=== PATIENT | female | born 2000 | race Caucasian/White ===

== ENCOUNTER 2024-02-17 20:32 | Emergency (ER) | payer SELFPAY ==
[2024-02-17 23:14] LABS: Specific Gravity 1.019 (1.005-1.030)
[2024-02-17] MEDS ORDERED: LIDOCAINE 1% MPF 5 ML VIAL ONE (23:23)
[2024-02-17] MEDS ORDERED: CEFTRIAXONE 1000 MG/VIAL ONE (23:23)
[2024-02-17] MEDS ORDERED: CODEINE 30MG/APAP 300MG TAB ONE (23:24)
[2024-02-17] MEDS ORDERED: DIAZEPAM 5 MG TABLET ONE (23:24)
[2024-02-17] MEDS ORDERED: KETOROLAC 30 MG/ML INJ ONE (23:24)
[2024-02-17] MEDS ORDERED: ONDANSETRON 4 MG (ODT) TAB ONE (23:24)
--- NOTE | 2024-02-18 00:09 | ER ---
Nurse's Notes [facility] Name: Radha Callaway Age: 24 yrs Sex: Female : 2000 Arrival Date: 02/17/2024 Time: 20:32 Bed 14 Private MD: Diagnosis: Dental caries, unspecified;Gingival abscess, acute dental abscess, dental cavity, acute pulpitis Presentation: 02/16 21:12 Chief complaint: Patient states: BROKEN RIGHT LOWER TOOTH. HAVING A TOOTHACHE THAT IS jj7 RADIATING TO THE RIGHT SIDE OF HER FACE. Coronavirus screen: At this time, the client does not indicate any symptoms associated with coronavirus-19. Ebola Screen: No symptoms or risks identified at this time. Initial Sepsis Screen: Does the patient meet any 2 criteria? No. Patient's initial sepsis screen is negative. Does the patient have a suspected source of infection? No. Patient's initial sepsis screen is negative. Risk Assessment: Do you want to hurt yourself or someone else? Patient reports no desire to harm self or others. Note TYLENOL. 21:12 Method Of Arrival: Ambulatory j7 21:12 Acuity: AUSTEN 5 jj7 Triage Assessment: 21:15 General: Appears in no apparent distress. uncomfortable, Behavior is calm, cooperative, jj7 appropriate for age. Pain: Complains of pain in lower right second molar and lower right third molar Pain radiates to right cheek, right ear and right jaw. EENT: Reports pain in mouth. 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 Flu vaccine is not up to date. - Social history:: Smoking status: Reported history of juuling and/or vaping. Patient/guardian denies using alcohol, street drugs, IV drugs. - Family history:: not pertinent. Screenin:17 [facility] ED Fall Risk Assessment (Adult) History of falling in the last 3 months, jj7 including since admission No falls in past 3 months (0 pts) Confusion or Disorientation No (0 pts) Intoxicated or Sedated No (0 pts) Impaired Gait No (0 pts) Mobility Assist Device Used No (0 pt) Altered Elimination Score/Fall Risk Level 0 - 2 = Low Risk Oriented to surroundings, Maintained a safe environment, Educated pt \T\ family on fall prevention, incl call for assistance when getting out of bed. Abuse screen: Denies threats or abuse. Nutritional screening: No deficits noted. Tuberculosis screening: No symptoms or risk factors identified. Assessment: 22:17 General: Appears in no apparent distress. comfortable, well groomed, well developed, pf1 Behavior is calm, cooperative, appropriate for age, quiet. 22:17 Pain: Complains of pain in face and right jaw and right ear and right cheek and mouth pf1 and lower right third molar and lower right second molar Pain currently is 7 out of 10 on a pain scale. Neuro: No deficits noted. Level of Consciousness is awake, alert, obeys commands, Oriented to person, place, time, situation. Cardiovascular: No deficits noted. Capillary refill < 3 seconds Patient's skin is warm and dry. Respiratory: No deficits noted. Airway is patent Respiratory effort is even, unlabored, Respiratory pattern is regular, symmetrical, Breath sounds are clear bilaterally. GI: No deficits noted. No signs and/or symptoms were reported involving the gastrointestinal system. : No deficits noted. No signs and/or symptoms were reported regarding the genitourinary system. EENT: Reports pain in face and right jaw and right ear and right cheek and mouth and lower right third molar and lower right second molar Pain is 7 out of 10 on a pain scale. Derm: No deficits noted. No signs and/or symptoms reported regarding the dermatologic system. 23:54 General: Appears uncomfortable, well groomed, well developed, Behavior is calm, me1 cooperative, appropriate for age. Pain: Complains of pain in face and right jaw and right ear and right cheek and mouth and lower right third molar and lower right second molar Pain currently is 5 out of 10 on a pain scale. Neuro: Level of Consciousness is awake, alert, obeys commands, Oriented to person, place, time, situation. Cardiovascular: Patient's skin is warm and dry. Respiratory: Airway is patent Respiratory effort is even, unlabored, Respiratory pattern is regular, symmetrical. GI: No signs and/or symptoms were reported involving the gastrointestinal system. : No signs and/or symptoms were reported regarding the genitourinary system. EENT: Reports pain in face and right jaw and right ear and right cheek and mouth and lower right third molar and lower right second molar. Derm: No signs and/or symptoms reported regarding the dermatologic system. Musculoskeletal: No signs and/or symptoms reported regarding the musculoskeletal system. Vital Signs: 21:12 BP 125 / 86; Pulse 71; Resp 19; Temp 98; Pulse Ox 100% ; Weight 63.5 kg; Height 5 ft. 5 j7 in. ; Pain 7/10; 22:17 BP 124 / 86; Pulse 75; Resp 16; Pulse Ox 100% on R/A; me1 23:22 BP 123 / 83; Pulse 82; Resp 16; Pulse Ox 98% on R/A; me1 23:45 BP 122 / 91; Pulse 81; Resp 16; Pulse Ox 100% on R/A; hi1 02/17 00:23 BP 129 / 85; Pulse 66; Resp 17; Pulse Ox 100% ; 7 02/16 21:12 Body Mass Index 23.30 (63.50 kg, 165.1 cm) j7 02/16 21:12 Pain Scale: Adult [facility] ED Course: 02/16 20:33 Patient arrived in ED. rg4 20:36 James Galeana MD is Attending Physician. sp4 21:15 Triage completed. j7 21:15 Arm band placed on right wrist. j7 21:17 Patient has correct armband on for positive identification. Adult w/ patient. j7 22:37 Damaris Her, RN is Primary Nurse. hi1 23:55 Provided Education on: POC. Verbalized understanding. . me1 23:55 No provider procedures requiring assistance completed. [facility] [place] 02/17 00:07 Bakari Sarmiento DDS is Referral Physician. sp4 00:28 Patient did not have IV access during this emergency room visit. j7 Administered Medications: 02/16 23:37 Drug: Ondansetron PO 4 mg PO once Route: PO; [facility] [place] 02/17 00:29 Follow up: Response: Marked relief of symptoms j7 00:29 Follow up: Response: Marked relief of symptoms j7 02/16 23:37 Drug: Acetaminophen-Codeine PO (300 mg-30 mg) 2 tabs PO once; RASS on ADMIN: Combtv4, me1 Very Agttd3, Agttd2, Rstlss1, AlertClm0, Drwsy-1, Lt Sdtn-2, Mod Sdtn-3, Dp Sdtn-4, UnArsble-5 Route: PO; 02/17 00:29 Follow up: Response: Marked relief of symptoms j7 02/16 23:38 Drug: Diazepam PO 5 mg PO once Route: PO; hi1 02/17 00:31 Follow up: Response: Marked relief of symptoms jj7 02/16 23:38 Drug: Ketorolac IM 60 mg IM once Route: IM; Site: left deltoid; hi1 02/17 00:30 Follow up: Response: Marked relief of symptoms j7 02/16 23:38 Drug: Rocephin (cefTRIAXone) IM 1 grams IM once Route: IM; Site: left gluteus; hi1 02/17 00:29 Follow up: Response: Marked relief of symptoms j7 00:23 Drug: Bupivacaine-Epinephrine Infiltration (0.5 %) 30 ml Infiltration once; to bedside jj7 {Note: ADMIN BY DR MOREL.} Route: Infiltration; 00:29 Follow up: Response: Marked relief of symptoms jj7 Medication: 02/16 23:56 VIS not applicable for this client. me1 Outcome: 02/17 00:08 Discharge ordered by . jas 00:28 Discharged to home ambulatory, with significant other, jj7 00:28 Condition: improved 00:28 Discharge instructions given to patient, Instructed on discharge instructions, follow up and referral plans. medication usage, Demonstrated understanding of instructions, follow-up care, medications, Prescriptions given X 4, 00:31 Patient left the ED. jj7 Signatures: Yarely Nelson4 Kae Mauro RN RN jj7 Tonie Doan RN RN pf1 James Galeana MD MD sp4 Damaris Her RN RN me1
--- NOTE | 2024-02-18 00:09 | EDPHYS ---
Physician Documentation [facility] Name: Radha Callaway Age: 24 yrs Sex: Female : 2000 Arrival Date: 02/17/2024 Time: 20:32 Bed 14 Private MD: ED Physician James Galeana HPI: 02/16 20:36 This 24 yrs old Other Female presents to ER via Unassigned with complaints of Gen sp4 complaint . 02/17 00:24 84-year-old female presents with complaint of right gingival pain right gingival sp4 purulent discharge to right lower gingival dental decay for several weeks. . 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 Flu vaccine is not up to date. - Social history:: Smoking status: Reported history of juuling and/or vaping. Patient/guardian denies using alcohol, street drugs, IV drugs. - Family history:: not pertinent. ROS: 02/17 00:24 Constitutional: Negative for fever, chills, and weight loss, Positive for right lower sp4 dental painand for the right lower gingival pain All other systems are negative, Exam: 00:24 Constitutional: This is a well developed, well nourished patient who is awake, alert, sp4 and in no acute distress. Head/Face: Normocephalic, atraumatic. Eyes: Pupils equal round and reactive to light, extra-ocular motions intact. Lids and lashes normal. Conjunctiva and sclera are not injected. Cornea within normal limits. Periorbital areas with no swelling, redness, or edema. ENT: Nares patent. No nasal discharge, no septal abnormalities noted. Tympanic membranes are normal and external auditory canals are clear. Oropharynx with no redness, swelling, or masses, exudates, or evidence of obstruction, uvula midline. Mucous membranes moist. There is right lower dental decay tooth #30 with large cavity and signs of pulpitis. Moderate diffuse periodontal disease moderate dental decay diffusely. Neck: Trachea midline, no thyromegaly or masses palpated, and no cervical lymphadenopathy. Supple, full range of motion without nuchal rigidity, or vertebral point tenderness. Chest/axilla: Normal chest wall appearance and motion. Nontender with no deformity. No lesions are appreciated. Cardiovascular: Regular rate and rhythm with a normal S1 and S2. No gallops, murmurs, or rubs. Normal PMI, no JVD. No pulse deficits. Respiratory: Lungs have equal breath sounds bilaterally, clear to auscultation and percussion. No rales, rhonchi or wheezes noted. No increased work of breathing, no retractions or nasal flaring. Abdomen/GI: Soft, with normal bowel sounds. No distension or tympany. No guarding or rebound. No evidence of tenderness throughout. Back: No spinal tenderness. No costovertebral tenderness. Skin: Warm, dry with normal turgor. Normal color with no rashes, no lesions, and no evidence of cellulitis. MS/ Extremity: Pulses equal, no cyanosis. Neurovascular intact. Full, normal range of motion. Neuro: Awake and alert, GCS 15, oriented to person, place, time, and situation. Cranial nerves II-XII grossly intact. Motor strength 5/5 in all extremities. Sensory grossly intact. Psych: Awake, alert, with orientation to person, place and time. Behavior, mood, and affect are within normal limits Vital Signs: 02/16 21:12 BP 125 / 86; Pulse 71; Resp 19; Temp 98; Pulse Ox 100% ; Weight 63.5 kg; Height 5 ft. 5 [facility] in. ; Pain 7/10; 22:17 BP 124 / 86; Pulse 75; Resp 16; Pulse Ox 100% on R/A; me1 23:22 BP 123 / 83; Pulse 82; Resp 16; Pulse Ox 98% on R/A; me1 23:45 BP 122 / 91; Pulse 81; Resp 16; Pulse Ox 100% on R/A; me1 02/17 00:23 BP 129 / 85; Pulse 66; Resp 17; Pulse Ox 100% ; [facility] 02/16 21:12 Body Mass Index 23.30 (63.50 kg, 165.1 cm) [facility] 02/16 21:12 Pain Scale: Adult [facility] MDM: 02/16 20:52 Patient medically screened. sp4 02/17 00:27 Differential Diagnosis altered mental status, sepsis, flu, Dental pain . Data reviewed: sp4 vital signs, nurses notes, lab test result(s). Consideration of Admission/Observation Escalation of care including admission/observation considered. ED course: Patient was given dental block with Marcaine without epi.. Marcaine with epi is not available. Complete pain control after dental block. Patient stable for discharge home. Patient was referred to local dentist for dental extraction of tooth #30. Patient has signs of significant periodontal disease, diffuse dental decay, diffuse gingivitis.. 02/16 21:00 Order name: Test, Urine; Complete Time: 00:00 sp4 Administered Medications: 02/16 23:37 Drug: Ondansetron PO 4 mg PO once Route: PO[place] [facility] [place] 00:29 Follow up: Response: Marked relief of symptoms jj7 00:29 Follow up: Response: Marked relief of symptoms jj7 02/16 23:37 Drug: Acetaminophen-Codeine PO (300 mg-30 mg) 2 tabs PO once; RASS on ADMIN: Combtv4, me1 Very Agttd3, Agttd2, Rstlss1, AlertClm0, Drwsy-1, Lt Sdtn-2, Mod Sdtn-3, Dp Sdtn-4, UnArsble-5 Route: PO; 02/17 00:29 Follow up: Response: Marked relief of symptoms jj7 02/16 23:38 Drug: Diazepam PO 5 mg PO once Route: PO; il1 02/17 00:31 Follow up: Response: Marked relief of symptoms jj7 02/16 23:38 Drug: Ketorolac IM 60 mg IM once Route: IM; Site: left deltoid; il1 02/17 00:30 Follow up: Response: Marked relief of symptoms jj7 02/16 23:38 Drug: Rocephin (cefTRIAXone) IM 1 grams IM once Route: IM; Site: left gluteus; il1 02/17 00:29 Follow up: Response: Marked relief of symptoms jj7 00:23 Drug: Bupivacaine-Epinephrine Infiltration (0.5 %) 30 ml Infiltration once; to bedside jj7 {Note: ADMIN BY DR MOREL.} Route: Infiltration; 00:29 Follow up: Response: Marked relief of symptoms jj7 Disposition Summary: 02/18/24 00:08 Discharge Ordered Notes: Please see Dentist for dental extraction tooth # 30 Location: Home sp4 Problem: new sp4 Symptoms: have improved sp4 Condition: Stable sp4 Diagnosis - Dental caries, unspecified sp4 - Gingival abscess, acute dental abscess, dental cavity, acute pulpitis sp4 Followup: sp4 - With: Bakari Sarmiento DDS - When: 7 - 10 days - Reason: Recheck today's complaints Discharge Instructions: - Discharge Summary Sheet sp4 - Dental Caries, Adult sp4 Forms: - Patient Portal Instructions sp4 Prescriptions: - Cephalexin 500 mg Oral Capsule - take 1 capsule ORAL route every 6 hours for 10 days; 40 capsule; Refills: 0, sp4 Product Selection Permitted - Ibuprofen 800 mg Oral Tablet - take 1 tablet ORAL route every 8 hours As needed take with food; 30 tablet; sp4 Refills: 0, Product Selection Permitted - Tramadol 50 mg Oral tablet - take 1 tablet ORAL route every 8 hours as needed; 20 tablet; Refills: 0, sp4 Product Selection Permitted - ondansetron 8 mg Oral Tablet,disintegrating - take 1 tablet ORAL route every 8 hours PRN nausea; 30 tablet; Refills: 0, sp4 Product Selection Permitted Signatures: Dispatcher [employer] Kae Blackman RN RN jj7 James Galeana MD MD sp4 Damaris Her RN RN me1
[2024-02-18 01:15] VITALS: BP 129/85; TEMP 98; O2SAT 100
== END 2024-02-18 00:31 | disposition home or self-care (01) ==
LOC: ER 20:32
DX: K04.7 Periapical abscess without sinus (principal); K04.01 Reversible pulpitis
CPT/HCPCS: 81025; 96372; 99284; J0696; J2001; Q0162

== ENCOUNTER 2024-10-29 20:23 | Emergency (ER) | payer SELFPAY ==
--- NOTE | 2024-10-29 22:11 | RAD REPORT ---
Pelvis Complete CLINICAL INDICATION: Female 24 years old R lower pelvic pain TECHNIQUE: Real-time ultrasonography of the pelvis was performed. Color and spectral Doppler evaluati on of the ovaries was performed. AV1980. COMPARISON: No prior exam. FINDINGS: UTERUS AND CERVIX: The uterus measures 6.6 x 3 x 4.3 cm (cervix to fundus x AP x transverse). The ut erus is normal. No masses seen The endometrium is normal,0.8 cm in thickness. RIGHT OVARY: Normal The right ovary measures 2.3 x 1.8 x 1.8 cm. Normal color and spectral Doppler ev aluation of the right ovary.. LEFT OVARY: Hemorrhagic cyst in the left ovary measuring 2 cm.. The left ovary measures 2.8 x 2.2 x 2 cm. Normal Color and spectral Doppler evaluation of the left ovary.. FREE FLUID: No free fluid. IMPRESSION: Bilateral ovarian blood flow. 2 cm left ovarian hemorrhagic cyst. This does not require follow-up but could be a source of pain.
[2024-10-29] MEDS ORDERED: KETOROLAC 30 MG/ML INJ ONE (22:51)
[2024-10-29] MEDS ORDERED: ONDANSETRON 4 MG/2 ML VIAL ONE (22:51)
[2024-10-29] MEDS ORDERED: MORPHINE 4 MG/ML SYR ONE (22:52)
[2024-10-29 23:07] LABS: Absolute Basophils 0.1 K/uL (0-0.5); Absolute Eosinophils 0.1 K/uL (0-0.5); Absolute Lymphocytes (CBC) 1.5 K/uL (0.7-4.9); Absolute Monocytes 0.5 K/uL (0.1-1.3); Absolute Neutrophil 3.6 K/uL (1.8-8.0); Eosinophils % 2.2 % (0-4.4); Hematocrit 38.1 % (36.0-45.0); Hemoglobin 12.8 g/dL (12.0-15.0); Lymphocytes % 25.8 % (15.3-44.8); MCH 30.1 pg (27.0-35.0); MCHC 33.7 g/dL (32.0-36.0); MCV 89.1 fL (80-100); MPV 8.1 fL (7.6-11.3); Monocytes % 8.8 % (3.3-12.3); Neutrophils % 62.2 % (41.7-73.7); Nucleated Red Blood Cells % 0.1 % (0-0); Platelets 331 thou/uL (152-406); RBC Red Blood Cell Count 4.27 M/uL (3.86-4.86); Red Cell Distribution Width 13.4 % (12.1-15.2)
[2024-10-29 23:09] LABS: Specific Gravity 1.024 (1.005-1.030)
[2024-10-29 23:13] LABS: Specific Gravity 1.024 (1.005-1.030); Sqamous Epithelial None Seen /HPF (None Seen); Urine Bacteria None Seen /HPF (<20); Urine Bilirubin NEGATIVE (Negative); Urine Blood Negative (Negative); Urine Clarity Extremely Turbid (Clear); Urine Color Yellow (Yellow); Urine Culture Reflex Order NOT NEEDED; Urine Glucose NEGATIVE (Negative); Urine Ketones NEGATIVE (Negative); Urine Microscopic Reflex YN ORDER UMIC; Urine Nitrite NEGATIVE (Negative); Urine Protein NEGATIVE (Negative); Urine RBC None Seen /HPF (None Seen); Urine Urobilinogen Normal (Normal); Urine WBC None Seen /HPF (<5)
[2024-10-29 23:17] LABS: Albumin 3.3 g/dL (3.4-5.0); Albumin/Globulin Ratio 0.9 (1.1-1.8); Anion Gap 6.6 mEq/L (5.0-15.0); Bilirubin Total 0.3 mg/dL (0.2-1.0); Globulin 3.8 g/dL (2.3-3.5); Potassium 3.6 mEq/L (3.5-5.1); Protein, Total 7.1 g/dL (6.4-8.2)
--- NOTE | 2024-10-29 23:43 | ER ---
Nurse's Notes [facility] Name: Radha Callaway Age: 24 yrs Sex: Female : 2000 Arrival Date: 10/29/2024 Time: 20:23 Bed 8 Private MD: Diagnosis: Ovarian Cyst Presentation: 10/29 21:11 Chief complaint: Patient states: around 1730 today pain started to RLQ/pelvis. Started tm6 like cramping, now feels sharp and shooting. Feeling dizzy due to pain. Coronavirus screen: Client denies travel out of the [place] in the last 14 days. Ebola Screen: Patient negative for fever greater than or equal to 101.5 degrees Fahrenheit, and additional compatible Ebola Virus Disease symptoms Patient denies exposure to infectious person. Patient denies travel to an Ebola-affected area in the 21 days before illness onset. No symptoms or risks identified at this time. Initial Sepsis Screen: Does the patient meet any 2 criteria? No. Patient's initial sepsis screen is negative. Does the patient have a suspected source of infection? No. Patient's initial sepsis screen is negative. Risk Assessment: Do you want to hurt yourself or someone else? Patient reports no desire to harm self or others. Onset of symptoms was October 29, 2024 at 17:30. 21:11 Method Of Arrival: Ambulatory tm6 21:11 Acuity: AUSTEN 3 tm6 Triage Assessment: 21:11 General: Appears uncomfortable, Behavior is calm, cooperative. Pain: Complains of pain tm6 in suprapubic area, right femoral area, right inguinal area and right iliac crest Pain currently is 10 out of 10 on a pain scale. Quality of pain is described as sharp, shooting, Pain began 3 hours ago. EENT: No signs and/or symptoms were reported regarding the EENT system. Neuro: Level of Consciousness is awake, alert, obeys commands, Oriented to person, place, time, situation. Neuro: Reports dizziness. Cardiovascular: Patient's skin is warm and dry. Respiratory: Airway is patent Respiratory effort is even, unlabored, Respiratory pattern is regular, symmetrical. GI: Abdomen is flat, non-distended, Reports nausea, vomiting. : Reports pain in suprapubic area Pain is 10 out of 10 on a pain scale. Derm: No signs and/or symptoms reported regarding the dermatologic system. Musculoskeletal: No signs and/or symptoms reported regarding the musculoskeletal system. 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 - Infectious Disease History:: Denies. - Social history:: Smoking status: Reported history of juuling and/or vaping. Screenin:[address] [facility] ED Fall Risk Assessment (Adult) History of falling in the last 3 months, al5 including since admission No falls in past 3 months (0 pts) Confusion or Disorientation No (0 pts) Intoxicated or Sedated No (0 pts) Impaired Gait No (0 pts) Mobility Assist Device Used No (0 pt) Altered Elimination No (0 pt) Score/Fall Risk Level 0 - 2 = Low Risk Oriented to surroundings, Maintained a safe environment, Hourly rounding (assess needs \T\ fall precautionary measures) done. Abuse screen: Denies threats or abuse. Denies injuries from another. Nutritional screening: No deficits noted. Tuberculosis screening: No symptoms or risk factors identified. Assessment: 22:36 General: Appears in no apparent distress. uncomfortable, Behavior is calm, cooperative. al5 Pain: Complains of pain in right lower quadrant and suprapubic area Pain currently is 10 out of 10 on a pain scale. Neuro: Level of Consciousness is awake, alert, obeys commands, Oriented to person, place, time, situation. Cardiovascular: Capillary refill < 3 seconds Patient's skin is warm and dry. Respiratory: Airway is patent Respiratory effort is even, unlabored, Respiratory pattern is regular, symmetrical. GI: Bowel sounds present X 4 quads. Guarding noted in right lower quadrant Reports lower abdominal pain, diarrhea, nausea, vomiting. : No signs and/or symptoms were reported regarding the genitourinary system. EENT: No signs and/or symptoms were reported regarding the EENT system. Derm: Skin is intact, is healthy with good turgor, Skin is pink, warm \T\ dry. normal. Musculoskeletal: No signs and/or symptoms reported regarding the musculoskeletal system. 10/30 00:53 Reassessment: Patient appears in no apparent distress at this time. Patient and/or al5 family updated on plan of care and expected duration. Pain level reassessed. Patient is alert, oriented x 3, equal unlabored respirations, skin warm/dry/pink. Patient states feeling better. Patient states symptoms have improved. Vital Signs: 10/29 21:09 Resp 19; Temp 98(O); Weight 68.04 kg; Height 5 ft. 5 in. ; Pain 10/10; tm6 21:10 BP 127 / 76; Pulse 81; Pulse Ox 100% on R/A; MAP 91 mmHg; tm6 22:38 BP 101 / 55; Pulse 65; Resp 18; Temp 98.1; Pulse Ox 100% on R/A; al5 23:00 BP 120 / 73; Pulse 63; Resp 16; Pulse Ox 100% on R/A; al5 10/30 00:00 BP 121 / 72; Pulse 67; Resp 16; Pulse Ox 100% on R/A; al5 00:30 BP 121 / 66; Pulse 59; Resp 16; Pulse Ox 99% on R/A; al5 10/29 21:09 Body Mass Index 24.96 (68.04 kg, 165.1 cm) tm6 10/29 21:09 Pain Scale: Adult tm6 ED Course: 10/29 20:25 Patient arrived in ED. jj6 21:11 Wiliam Grover MD is Attending Physician. ec2 21:11 Arm band placed on right wrist. tm6 21:13 Triage completed. tm6 21:54 US Pelvis Complete In Process Unspecified. EDMS 22:22 Urinalysis w/ reflexes Sent. tm6 22:36 Beth Corona RN is Primary Nurse. al5 22:37 Patient has correct armband on for positive identification. Placed in gown. Bed in low al5 position. Call light in reach. Side rails up X2. Provided Education on: plan of care. 22:38 No provider procedures requiring assistance completed. al5 22:57 Initial lab(s) drawn, by me, sent to lab. Inserted saline lock: 20 gauge in right cp4 antecubital area, using aseptic technique. Blood collected. Flushed with 10 mL NS. 10/30 00:53 IV discontinued, intact, bleeding controlled, No redness/swelling at site. Pressure al5 dressing applied. Administered Medications: 10/29 22:56 Drug: TORadol - Ketorolac IVP 15 mg IVP once Route: IVP; Site: right antecubital; cp4 10/30 00:53 Follow up: Response: No adverse reaction; Pain is decreased al5 10/29 22:56 Drug: Ondansetron IVP 4 mg IVP once; over 2 minutes Route: IVP; Site: right antecubital;cp4 10/30 00:53 Follow up: Response: No adverse reaction; Pain is decreased al5 10/29 22:56 Drug: morphine IVP or IV 4 mg IVP once over 4 mins Route: IVP; Infused Over: 4 mins; cp4 Site: right antecubital; 10/30 00:53 Follow up: Response: No adverse reaction; Pain is decreased al5 Medication: 10/29 22:37 VIS not applicable for this client. al5 Outcome: 23:43 Discharge ordered by . ec2 10/30 00:55 Discharged to home ambulatory, with significant other, al5 Condition: good Discharge instructions given to patient, significant other, Instructed on discharge instructions, follow up and referral plans. medication usage, Demonstrated understanding of instructions, follow-up care, medications, Prescriptions given X 1, 00:55 Patient left the ED. al5 Signatures: Dispatcher [employer] EDNaima Jeterj6 Wiliam Grover MD MD ec2 Nori Sams 4 More Huynh RN RN tm6 Beth Corona RN RN al5 Corrections: (The following items were deleted from the chart) 10/29 21:10 21:10 Allergies: No Known Allergies; tm6 tm6
--- NOTE | 2024-10-29 23:43 | EDPHYS ---
Physician Documentation [facility] Name: Radha Callaway Age: 24 yrs Sex: Female : 2000 Arrival Date: 10/29/2024 Time: 20:23 Bed 8 Private MD: ED Physician Wiliam Grover HPI: 10/29 21:15 This 24 yrs old Female presents to ER via Ambulatory with complaints of ec2 Abdominal Pain. 21:16 Patient arrives today for evaluation of right lower abdominal pain. Patient reports ec2 that she has been experiencing right lower pelvic pain has been progressively worsening, reports some associated nausea without vomiting. No urinary complaints. History of ovarian cyst and this feels similar however more intense. No previous abdominal surgeries. No medication allergies.LMP was 1 week ago however has irregular periods.. 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 - Infectious Disease History:: Denies. - Social history:: Smoking status: Reported history of juuling and/or vaping. ROS: 21:16 Constitutional: as per hpi ec2 Exam: 21:16 Constitutional: GEN: NAD Head: atraumatic Eyes: EOMI Ears: External ears are ec2 normal. CV: regular rate LUNGS: no respiratory distress ABD: non-distended, mild right lower abdomen TTP without guarding or rigidity. No CVA TTP. SKIN: no evidence of rashes MSK: no evidence of trauma Vital Signs: 21:09 Resp 19; Temp 98(O); Weight 68.04 kg; Height 5 ft. 5 in. ; Pain 10/10; tm6 21:10 BP 127 / 76; Pulse 81; Pulse Ox 100% on R/A; MAP 91 mmHg; tm6 22:38 BP 101 / 55; Pulse 65; Resp 18; Temp 98.1; Pulse Ox 100% on R/A; al5 23:00 BP 120 / 73; Pulse 63; Resp 16; Pulse Ox 100% on R/A; al5 12/09 00:00 BP 121 / 72; Pulse 67; Resp 16; Pulse Ox 100% on R/A; al5 00:30 BP 121 / 66; Pulse 59; Resp 16; Pulse Ox 99% on R/A; al5 10/29 21:09 Body Mass Index 24.96 (68.04 kg, 165.1 cm) tm6 10/29 21:09 Pain Scale: Adult tm6 MDM: 10/29 21:11 Medical Screening Exam initiated ec2 21:16 Data reviewed: vital signs, nurses notes. ED course: Patient arrives today for ec2 evaluation of right lower pelvic pain. Examination revealing for well-appearing nontoxic individual who is hemodynamically stable with right low abdomen TTP without guarding or rigidity. Will obtain lab work, urine study, ultrasonography. Differential diagnoses considered include processes such as ovarian cyst, doubt appendicitis or urinary tract infection. Will treat the patient symptoms as well.. 10/29 21:16 Order name: CBC with Diff; Complete Time: 23:34 ec2 10/29 21:16 Order name: CMP; Complete Time: 23:34 ec2 10/29 21:16 Order name: Lipase; Complete Time: 23:34 ec2 10/29 21:16 Order name: Test, Urine; Complete Time: 23:34 ec2 10/29 21:16 Order name: Urinalysis w/ reflexes; Complete Time: 23:34 ec2 10/29 21:16 Order name: US Pelvis Complete; Complete Time: 22:40 ec2 10/29 21:16 Order name: IV Saline Lock; Complete Time: 22:49 ec2 10/29 21:16 Order name: Labs collected and sent; Complete Time: 22:49 ec2 Administered Medications: 22:56 Drug: TORadol - Ketorolac IVP 15 mg IVP once Route: IVP; Site: right antecubital; cp4 10/30 00:53 Follow up: Response: No adverse reaction; Pain is decreased al5 10/29 22:56 Drug: Ondansetron IVP 4 mg IVP once; over 2 minutes Route: IVP; Site: right antecubital;cp4 10/30 00:53 Follow up: Response: No adverse reaction; Pain is decreased al5 10/29 22:56 Drug: morphine IVP or IV 4 mg IVP once over 4 mins Route: IVP; Infused Over: 4 mins; cp4 Site: right antecubital; 10/30 00:53 Follow up: Response: No adverse reaction; Pain is decreased al5 Disposition Summary: 10/29/24 23:43 Discharge Ordered Notes: Location: Home ec2 Condition: Stable ec2 Diagnosis - Ovarian Cyst ec2 Followup: ec2 - With: Private Physician - When: - Reason: Re-evaluation by your physician Discharge Instructions: - Discharge Summary Sheet ec2 - Ovarian Cyst, [id number] ec2 Forms: - Medication Reconciliation Form ec2 - Antibiotic Education ec2 - Prescription Opioid Use ec2 - Patient Portal Instructions ec2 - Leadership Thank You Letter ec2 Prescriptions: - acetaminophen-codeine 300-30 mg Oral tablet - take 1 tablet ORAL route every 4 hours as needed for pain; 15 tablet; Refills: ec2 0, Product Selection Permitted Signatures: Dispatcher [employer] EDWiliam Stoll MD MD ec2 Nori Sams cp4 More Huynh RN RN tm6 Beth Corona RN al5 Corrections: (The following items were deleted from the chart) 10/29 21:10 21:10 Allergies: No Known Allergies; tm6 tm6 21:16 21:16 Patient arrives today for evaluation of right lower abdominal pain. Patient ec2 reports that she has been experiencing right lower pelvic pain has been progressively worsening, reports some associated nausea without vomiting. No urinary complaints. History of ovarian cyst and this feels similar however more intense. No previous abdominal surgeries. No medication allergies.. ec2
[2024-10-30 07:07] VITALS: TEMP 98.1
[2024-10-30 07:15] VITALS: BP 121/66; O2SAT 99
== END 2024-10-30 00:55 | disposition home or self-care (01) ==
LOC: ER 20:23
DX: N83.209 Unspecified ovarian cyst, unspecified side (principal)
CPT/HCPCS: 36415; 76856; 80053; 81001; 81025; 83690; 85025; 96374; 96375; 99284; J2405

== ENCOUNTER 2024-11-01 23:18 | Emergency (ER) | payer OTHER, SELFPAY ==
[2024-11-02] MEDS ORDERED: KETOROLAC 30 MG/ML INJ ONE (02:10)
[2024-11-02 02:22] LABS: Absolute Basophils 0.1 K/uL (0-0.5); Absolute Eosinophils 0.2 K/uL (0-0.5); Absolute Lymphocytes (CBC) 1.9 K/uL (0.7-4.9); Absolute Monocytes 0.3 K/uL (0.1-1.3); Absolute Neutrophil 4.4 K/uL (1.8-8.0); Basophils % 1.4 % (0-1.3); Eosinophils % 2.6 % (0-4.4); Hemoglobin 13.4 g/dL (12.0-15.0); Lymphocytes % 28.2 % (15.3-44.8); MCH 29.3 pg (27.0-35.0); MCHC 32.6 g/dL (32.0-36.0); MCV 89.8 fL (80-100); MPV 8.6 fL (7.6-11.3); Monocytes % 4.6 % (3.3-12.3); Neutrophils % 63.2 % (41.7-73.7); Platelets 331 thou/uL (152-406); RBC Red Blood Cell Count 4.56 M/uL (3.86-4.86); Red Cell Distribution Width 13.3 % (12.1-15.2)
[2024-11-02 02:58] LABS: Albumin 3.9 g/dL (3.4-5.0); Albumin/Globulin Ratio 0.9 (1.1-1.8); Anion Gap 7.9 mEq/L (5.0-15.0); Bilirubin Total 0.2 mg/dL (0.2-1.0); Globulin 4.2 g/dL (2.3-3.5); Potassium 3.9 mEq/L (3.5-5.1); Protein, Total 8.1 g/dL (6.4-8.2)
[2024-11-02 03:17] LABS: Specific Gravity 1.015 (1.005-1.030); Urine Bilirubin NEGATIVE (Negative); Urine Blood Negative (Negative); Urine Clarity Clear (Clear); Urine Color Light-Yellow (Yellow); Urine Glucose NEGATIVE (Negative); Urine Ketones NEGATIVE (Negative); Urine Microscopic Reflex YN NO UMIC; Urine Nitrite NEGATIVE (Negative); Urine Protein NEGATIVE (Negative); Urine Urobilinogen Normal (Normal); Urine pH 7.5 (5.0-7.0)
--- NOTE | 2024-11-02 04:05 | RAD REPORT ---
EXAM: CT Abdomen and Pelvis With Intravenous Contrast CLINICAL HISTORY: Rlq pain. TECHNIQUE: Axial computed tomography images of the abdomen and pelvis with intravenous contrast. Sagittal and coronal reformatted images were created and reviewed. This CT exam was performed using one or more of the following dose reduction techniques: automated exposure control, adjustment of the mA a nd/or kV according to patient size, and/or use of iterative reconstruction technique. COMPARISON: CT Abdomen Pelvis 09/28/2023. FINDINGS: Lung bases: Unremarkable. No mass. No consolidation. ABDOMEN: Liver: Unremarkable. No mass. Gallbladder and bile ducts: Contracted gallbladder. No calcified stones. No ductal dilation. Pancreas: Unremarkable. No mass. No ductal dilation. Spleen: Unremarkable. No splenomegaly. Adrenals: Unremarkable. No mass. Kidneys and ureters: Small right and punctate left renal calculi. Normal renal cortical enhancement . No hydronephrosis. Stomach and bowel: Moderate stool. No bowel obstruction. No appreciable mucosal thickening. PELVIS: Appendix: Normal caliber appendix. No findings to suggest acute appendicitis. Bladder: Unremarkable. No mass. Reproductive: Unremarkable as visualized. ABDOMEN and PELVIS: Intraperitoneal space: Unremarkable. No free air. No significant fluid collection. Bones/joints: No acute fracture. No dislocation. Soft tissues: Unremarkable. Vasculature: Unremarkable. No abdominal aortic aneurysm. Lymph nodes: Unremarkable. No enlarged lymph nodes. IMPRESSION: 1. Bilateral nonobstructive renal calculi. 2. Normal caliber appendix. No findings to suggest acute appendicitis. 3. Other findings as above. Electronically signed by: Bhakti Wyatt MD 11/02/2024 03:59 AM [facility] Due to temporary technical issues with the PACS/Agent Partner reporting system, reports are being damian d by the in-house radiologist without review as a courtesy to ensure prompt reporting the interpreting radiologist is fully responsible for the content of the report. Transcribed Date/Time: 11/02/2024 4:04 AM
--- NOTE | 2024-11-02 04:24 | ER ---
Nurse's Notes [facility] Name: Radha Callaway Age: 24 yrs Sex: Female : 2000 Arrival Date: 11/01/2024 Time: 23:18 Bed 10 Private MD: Diagnosis: Acute pelvic pain in female Presentation: 11/01 23:27 Chief complaint: Patient states: right lower abdominal pain seen here on Wednesday kl diagnosed with ruptures cyst reports pain continues now is nauseated and is spotting negative test per patient. Coronavirus screen: Vaccine status: Patient reports being unvaccinated. Ebola Screen: Patient negative for fever greater than or equal to 101.5 degrees Fahrenheit, and additional compatible Ebola Virus Disease symptoms. Initial Sepsis Screen: Does the patient meet any 2 criteria? No. Patient's initial sepsis screen is negative. Does the patient have a suspected source of infection? No. Patient's initial sepsis screen is negative. Risk Assessment: Do you want to hurt yourself or someone else? Patient reports no desire to harm self or others. 23:27 Method Of Arrival: Ambulatory 23:27 Acuity: AUSTEN 3 kl 23:50 Onset of symptoms was November 02, 2024. ha1 Triage Assessment: 23:30 General: Appears distressed, uncomfortable, Behavior is cooperative. Pain: Complains of kl pain in right lower quadrant Pain currently is 8 out of 10 on a pain scale. : Reports vaginal bleeding that is spotty, Denies burning with urination. Historical: - Allergies: 23:29 Bees; kl - Home Meds: 23:29 Tylenol #3 Oral [Active]; kl - PMHx: 23:29 Ovarian cysts; kl - PSHx: 23:29 None; kl - Immunization history:: Adult Immunizations not immunized. - Infectious Disease History:: Denies. - Social history:: Smoking status: Reported history of juuling and/or vaping. Screenin/12 02:37 [facility] ED Fall Risk Assessment (Adult) History of falling in the last 3 months, kl including since admission No falls in past 3 months (0 pts) Confusion or Disorientation No (0 pts) Intoxicated or Sedated No (0 pts) Impaired Gait No (0 pts) Mobility Assist Device Used No (0 pt) Altered Elimination No (0 pt) Score/Fall Risk Level 0 - 2 = Low Risk Oriented to surroundings, Maintained a safe environment. Abuse screen: Denies threats or abuse. Nutritional screening: No deficits noted. Tuberculosis screening: No symptoms or risk factors identified. Assessment: 02:36 General: Appears in no apparent distress. comfortable, Behavior is calm, cooperative, kl tolerated Taco Carpenter meal reports nausea resolved. Pain: Denies pain. Neuro: No deficits noted. Cardiovascular: No deficits noted. Respiratory: No deficits noted. GI: No deficits noted. No signs and/or symptoms were reported involving the gastrointestinal system. : Urine is clear. Vital Signs: 11/01 23:27 BP 120 / 65; Pulse 71; Resp 16; Temp 97.6(TE); Pulse Ox 100% on R/A; Weight 68.04 kg (R); Height 5 ft. 5 in. ; Pain 07/01; 11/02 04:00 BP 135 / 60; Pulse 78; Resp 18 S; Pulse Ox 100% on R/A; ha1 11/01 23:27 Body Mass Index 24.96 (68.04 kg, 165.1 cm) 11/01 23:27 Pain Scale: Adult ED Course: 11/01 23:21 Patient arrived in ED. im 23:29 Triage completed. kl 23:30 Arm band placed on right wrist. ha1 23:32 Luis Fernando Keane NP is PHCP. pm1 23:32 James Galeana MD is Attending Physician. pm1 12 02:08 CMP Sent. vk 02:08 CBC with Diff Sent. vk 02:08 Inserted saline lock: 20 gauge in right antecubital area, using aseptic technique. vk Blood collected. Flushed with 10 mL NS. 02:08 Initial lab(s) drawn, by me, sent to lab. vk 02:26 Test, Urine Sent. vk 02:26 Urinalysis w/ reflexes Sent. vk 02:26 Urine collected: clean catch specimen, clear. vk 02:37 Patient has correct armband on for positive identification. kl 03:12 CT Abd/Pelvis - IV Contrast Only In Process Unspecified. EDMS 04:58 No provider procedures requiring assistance completed. IV discontinued, intact, ha1 bleeding controlled, No redness/swelling at site. Pressure dressing applied. 04:58 Provided Education on: follow ups. ha1 Administered Medications: 02:20 Drug: Ketorolac IVP 15 mg IVP once Route: IVP; Site: right antecubital; kl 02:45 Follow up: Response: No adverse reaction; Marked relief of symptoms ha1 Medication: 04:58 VIS not applicable for this client. ha1 Outcome: 04:24 Discharge ordered by . jas 04:58 Discharged to home ambulatory, with family, ha1 04:58 Condition: stable 04:58 Discharge instructions given to patient, family, Instructed on discharge instructions, follow up and referral plans. medication usage, Demonstrated understanding of instructions, follow-up care, medications, Prescriptions given X 2, 04:59 Patient left the ED. ha1 Signatures: Dispatcher [employer] EDMS Maribel Boyle RN RN kl Marinas, Patrick, NP TIEING MACHINE OPERATOR pm1 Merissa Brewster RN RN ha1 James Galeana MD MD sp4 Nallely Heredia Vivian vk
--- NOTE | 2024-11-02 04:24 | EDPHYS ---
Physician Documentation [facility] Name: Radha Kellogg Age: 24 yrs Sex: Female : 2000 Arrival Date: 11/01/2024 Time: 23:18 Bed 10 Private MD: ED Physician James Galeana HPI: 11/02 00:24 This 24 yrs old Female presents to ER via Ambulatory with complaints of Vaginal pm1 Bleeding, Abdominal Pain, Nausea. 00:24 The patient presents with vaginal bleeding that is spotting. Onset: The pm1 symptoms/episode began/occurred yesterday. Associated signs and symptoms: Pertinent positives: nausea. Severity of symptoms: in the emergency department the symptoms are unchanged. The patient has been recently seen at the [facility] Emergency Department, this week, for similar complaints labs were performed, an ultrasound was performed, Dx with ruptured ovarian cyst. Historical: - Allergies: 11/01 23:29 Bees; kl - Home Meds: 23:29 Tylenol #3 Oral [Active]; kl - PMHx: 23:29 Ovarian cysts; kl - PSHx: 23:29 None; kl - Immunization history:: Adult Immunizations not immunized. - Infectious Disease History:: Denies. - Social history:: Smoking status: Reported history of juuling and/or vaping. ROS: 00:24 Positive for vaginal bleeding, Negative for urinary symptoms, pm1 00:24 Constitutional: Negative for fever, chills, and weight loss, 00:24 Back: Negative for injury and pain, MS/Extremity: Negative for injury and deformity, Skin: Negative for injury, rash, and discoloration, Neuro: Negative for headache, weakness, numbness, tingling, and seizure, 00:24 Abdomen/GI: Positive for abdominal pain, nausea, 00:24 All other systems are negative, Exam: 00:24 Constitutional: This is a well developed, well nourished patient who is awake, alert, pm1 and in no acute distress. 00:24 Back: No spinal tenderness. No costovertebral tenderness. Full range of motion. Skin: Warm, dry with normal turgor. Normal color with no rashes, no lesions, and no evidence of cellulitis. MS/ Extremity: Pulses equal, no cyanosis. Neurovascular intact. Full, normal range of motion. Neuro: Awake and alert, GCS 15, oriented to person, place, time, and situation. Cranial nerves II-XII grossly intact. Motor strength 5/5 in all extremities. Sensory grossly intact. Cerebellar exam normal. Normal gait. 00:24 Abdomen/GI: Inspection: abdomen appears normal, Palpation: soft, in all quadrants, mild abdominal tenderness, in the suprapubic area and right lower quadrant, Vital Signs: 23:27 BP 120 / 65; Pulse 71; Resp 16; Temp 97.6(TE); Pulse Ox 100% on R/A; Weight 68.04 kg kl (R); Height 5 ft. 5 in. ; Pain 07/01; 11/02 04:00 BP 135 / 60; Pulse 78; Resp 18 S; Pulse Ox 100% on R/A; ha1 11/01 23:27 Body Mass Index 24.96 (68.04 kg, 165.1 cm) 11/01 23:27 Pain Scale: Adult kl MDM: 11/01 23:32 Medical Screening Exam initiated pm1 11/02 00:25 ED course: Patient with labs and US pelvis performed that shows 2 cm hemorrhagic cyst.. pm1 01:36 Data reviewed: vital signs. pm1 01:58 ED course: Patient without improvement in her pain and she reports RLQ pain. Patient pm1 without CT study at last ER visit. Will get CT scan now. 01:59 ED course: The patient's nausea resolved. She was able to eat taco aguilar while waiting pm1 in the ER lobby. 02:10 Differential diagnosis: appendicitis, nonspecific abdominal pain, ovarian cyst, urinary pm1 tract infection. 02:10 I considered the following discharge prescriptions or medication management in the pm1 emergency department Medications were administered in the Emergency Department. See JAN. 02:10 Care significantly affected by the following Social Determinants of Health: Poor access pm1 to healthcare and/or lack of insurance. 04:19 ED course: EXAM: CTAbdomen and Pelvis With Intravenous Contrast CLINICAL HISTORY: Rlq sp4 pain. TECHNIQUE: Axial computed tomography images of the abdomen and pelvis with intravenous contrast. Sagittal and coronal reformatted images were created and reviewed. This CT exam was performed using one or more of the following dose reduction techniques: automated exposure control, adjustment of the mA and/or kV according to patient size, and/or use of iterative reconstruction technique. COMPARISON: CTAbdomen Pelvis 09/28/2023. FINDINGS: Lung bases: Unremarkable. No mass. No consolidation. ABDOMEN: Liver: Unremarkable. No mass. Gallbladder and bile ducts: Contracted gallbladder. No calcified stones. No ductal dilation. Pancreas: Unremarkable. No mass. No ductal dilation. Spleen: Unremarkable. No splenomegaly. Adrenals: Unremarkable. No mass. Kidneys and ureters: Small right and punctate left renal calculi. Normal renal cortical enhancement. No hydronephrosis. Stomach and bowel: Moderate stool. No bowel obstruction. No appreciable mucosal thickening. PELVIS: Appendix: Normal caliber appendix. No findings to suggest acute appendicitis. Bladder: Unremarkable. No mass. Reproductive: Unremarkable as visualized. ABDOMEN and PELVIS: Intraperitoneal space: Unremarkable. No free air. No significant fluid collection. Bones/joints: No acute fracture. No dislocation. Soft tissues: Unremarkable. Vasculature: Unremarkable. No abdominal aortic aneurysm. Lymph nodes: Unremarkable. No enlarged lymph nodes. IMPRESSION: 1. Bilateral nonobstructive renal calculi. 2. Normal caliber appendix. No findings to suggest acute appendicitis. 3. Other findings as above. . 04:25 ED course: Review US report 10/29/2024 - [place] [id number] [facility] REPORT Name: BOBO KELLOGG Acct Number: [id number] :2000 Age:24 Sex:F Ord Phys: Wiliam Grover Unit Number: [id number] [address]: NONE Status: REG ER ER Exam Date: 10/29/24 Pelvis Complete CLINICAL INDICATION: Female 24 years old R lower pelvic pain TECHNIQUE: Real-time ultrasonography of the pelvis was performed. Color and spectral Doppler evaluation of the ovaries was performed. [id number]. COMPARISON: No prior exam. FINDINGS: UTERUS AND CERVIX: The uterus measures 6.6 x 3 x 4.3 cm (cervix to fundus xAP x transverse). The uterus is normal. No masses seen The endometrium is normal,0.8 cm in thickness. RIGHT OVARY: Normal The right ovary measures 2.3 x 1.8 x 1.8 cm. Normal color and spectral Doppler evaluation of the right ovary.. LEFT OVARY: Hemorrhagic cyst in the left ovary measuring 2 cm.. The left ovary measures 2.8 x 2.2 x 2 cm. Normal Color and spectral Doppler evaluation of the left ovary.. FREE FLUID: No free fluid. IMPRESSION: Bilateral ovarian blood flow. 2 cm left ovarian hemorrhagic cyst. This does not require follow-up but could be a source of pain. . 11/02 00:24 Order name: CBC with Diff; Complete Time: 04:19 pm1 11/02 00:24 Order name: CMP; Complete Time: 04:19 pm1 11/02 01:58 Order name: Test, Urine; Complete Time: 04:19 pm1 11/02 01:58 Order name: Urinalysis w/ reflexes; Complete Time: 04:19 pm1 11/02 01:58 Order name: CT Abd/Pelvis - IV Contrast Only pm1 11/02 00:24 Order name: IV Saline Lock; Complete Time: 02:08 pm1 Administered Medications: 02:20 Drug: Ketorolac IVP 15 mg IVP once Route: IVP; Site: right antecubital; kl 02:45 Follow up: Response: No adverse reaction; Marked relief of symptoms ha1 Disposition: 04:23 Co-signature as Attending Physician, James Galeana MD I agree with the assessment sp4 and plan of care. I reviewed the patient's care provided by Advanced Practice Provider \T\ agree w/ the diagnosis \T\ care plan. I personally saw the pt \T\ performed a substantive portion of the visit, incldng all aspects of the (History/Exam/Medical Decision Making). Disposition Summary: 11/02/24 04:24 Discharge Ordered Notes: Location: Home sp4 Problem: new sp4 Symptoms: have improved sp4 Condition: Stable sp4 Diagnosis - Acute pelvic pain in female sp4 Followup: sp4 - With: Private Physician - When: 7 - 10 days - Reason: Recheck today's complaints Discharge Instructions: - Discharge Summary Sheet sp4 - Pelvic Pain, Female, [id number] sp4 Forms: - Patient Portal Instructions sp4 Prescriptions: - Tramadol 50 mg Oral tablet - take 1 tablet ORAL route every 8 hours as needed; 20 tablet; Refills: 0, sp4 Product Selection Permitted - ondansetron 8 mg Oral Tablet,disintegrating - take 1 tablet ORAL route every 8 hours PRN nausea; 30 tablet; Refills: 0, sp4 Product Selection Permitted Signatures: Dispatcher [employer] Maribel Daly, RN RN kl Luis Fernando Keane NP PEDIATRIC NP pm1 James Galeana MD MD sp4 Merissa Brewster RN ha1 Corrections: (The following items were deleted from the chart) 01:49 12 00:24 Abdomen/GI: Inspection: abdomen appears normal, Palpation: soft, in all pm1 quadrants, mild abdominal tenderness, in the right lower quadrant, 1 11/02 01:58 1211 00:24 Abdomen/GI: Inspection: abdomen appears normal, Palpation: soft, in all pm1 quadrants, mild abdominal tenderness, in the suprapubic area, 1 11/02 02:09 00:24 The patient has been recently seen at the [facility] Emergency Department, this week, for similar complaints labs were performed, CT scan was performed, Dx with ruptured ovarian cyst, 1
[2024-11-02 05:12] VITALS: BP 120/65; TEMP 97.6; O2SAT 100
== END 2024-11-02 04:59 | disposition home or self-care (01) ==
LOC: ER 23:18
DX: N93.9 Abnormal uterine and vaginal bleeding, unspecified (principal); R10.2 Pelvic and perineal pain; R11.0 Nausea; F17.290 Nicotine dependence, other tobacco product, uncomplicated
CPT/HCPCS: 85025; 36415; 81025; 81003; 80053; 74177; 96374; 99284; Q9967